=== PATIENT | female | born 1985 | race American Indian/Alaskan Native ===

== ENCOUNTER 2017-01-04 13:18 | Emergency (ER) | payer SELFPAY ==
[2017-01-04 14:16] VITALS: BP 112/68
[2017-01-04] MEDS ORDERED: PROVENTIL IH ONE ×3 (15:56→20:10)
== END 2017-01-05 05:30 | disposition left against medical advice (07) ==
LOC: ED 13:18
DX: M79.1 Myalgia (principal); Z53.21 Procedure and treatment not carried out due to patient leaving prior to being seen by health care provider
CPT/HCPCS: 94640